=== PATIENT | female | born 1960 ===

== ENCOUNTER 2023-03-24 08:23 | Inpatient (IN) | payer OTHER ==
[~2023-03-24] VITALS: Ht 160 cm; Wt 57.2 kg
[2023-03-24] MEDS ORDERED: ZETIA10 MG PO (08:54)
[2023-03-24] MEDS ORDERED: CRESTOR10 MG PO (08:54)
[2023-03-24] MEDS ORDERED: TOPROL XL50 M1 PO (08:55)
[2023-03-24] MEDS ORDERED: TRAZODONE HCL150 MG PO (08:55)
[2023-03-24 09:40] LABS: URINE APPEARANCE Clear; URINE BILIRRUBIN Negative (NEGATIVE); URINE BLOOD Negative; URINE COLOR Yellow; URINE GLUCOSE Negative (NEGATIVE); URINE LEUKOCYTE Moderate; URINE NITRATE Negative; URINE PROTEIN Negative (NEGATIVE); URINE UROBILINOGEN 0.2 E.U./dl
[2023-03-24 09:45] LABS: URINE BACTERIA 163.7 uL (0.0-1933); URINE EPITHELIAL CELLS 9.1 uL (0.0-38.8); URINE RBC 5.1 uL (0.0-20.8); URINE WBC 4.7 uL (0.0-23.2)
[2023-03-24 09:47] LABS: HEMATOCRIT 41.1 % (36.0-45.00); HEMOGLOBIN 13.4 g/dL (12.0-15.00); MEAN CELL VOLUME 86.2 fL (80.00-100.00); MEAN CORPUSCULAR HEMOGLOBIN 28.1 pg (27.00-32.0); MEAN CORPUSCULAR HGB CONC 32.6 g/dl (32.0-36.0); PLATELET COUNT 198 K/uL (150-450); RED BLOOD COUNT 4.77 M/uL (4.00-6.00); RED CELL DISTRIBUTION WIDTH 13.5 % (11.5-14.5)
[2023-03-24 10:18] LABS: INR 1.01; PARTIAL THROMBOPLASTIN TIME 27.7 SECONDS (22.0-34.0); PROTHROMBIN TIME 10.6 SECONDS (9.0-11.5)
[2023-03-24 10:25] LABS: BILIRUBIN TOTAL 0.83 mg/dL (0.3-1.2); CREATININE SERUM 0.8 mg/dL (0.55-1.02); GFR 72.44; GLOBULINA 3.3 G/DL (2.4-3.5); POTASSIUM 4.25 mEq/L (3.5-5.1); TOTAL PROTEIN 7.3 gm/dL (6.4-8.2); TSH 0.929 uIU/mL (0.358-3.74)
[2023-03-31] MEDS ORDERED: LORATADINE10 MG (13:58)
[2023-03-31 17:50] LABS: HEMATOCRIT 39.4 % (36.0-45.00); HEMOGLOBIN 12.8 g/dL (12.0-15.00); MEAN CELL VOLUME 85.5 fL (80.00-100.00); MEAN CORPUSCULAR HEMOGLOBIN 27.7 pg (27.00-32.0); MEAN CORPUSCULAR HGB CONC 32.4 g/dl (32.0-36.0); PLATELET COUNT 181 K/uL (150-450); RED BLOOD COUNT 4.61 M/uL (4.00-6.00); RED CELL DISTRIBUTION WIDTH 13.4 % (11.5-14.5)
[2023-04-01] MEDS ORDERED: NAPR500T14 PO (09:12)
[2023-04-01] MEDS ORDERED: [UNRECOGNIZED DRUG - OTHER] PO (09:12)
== END 2023-04-01 12:24 | disposition home or self-care (01) | DRG 743 ==
LOC: O/R 03-31 09:09 → OB/GYN 03-31 10:15
PROVIDERS: ADMIT Obstetrics & Gynecology; ATTEND Obstetrics & Gynecology
PROC: 0UT7FZZ Resection of Bilateral Fallopian Tubes, Via Natural or Artificial Opening With Percutaneous Endoscopic Assistance (ICD-10-PCS; 2023-03-31)
PROC: 0UT2FZZ Resection of Bilateral Ovaries, Via Natural or Artificial Opening With Percutaneous Endoscopic Assistance (ICD-10-PCS; 2023-03-31)
PROC: 0JQC0ZZ Repair Pelvic Region Subcutaneous Tissue and Fascia, Open Approach (ICD-10-PCS; 2023-03-31)
PROC: 0USG0ZZ Reposition Vagina, Open Approach (ICD-10-PCS; 2023-03-31)
PROC: 0TJB8ZZ Inspection of Bladder, Via Natural or Artificial Opening Endoscopic (ICD-10-PCS; 2023-03-31)
PROC: 0UT9FZZ Resection of Uterus, Via Natural or Artificial Opening With Percutaneous Endoscopic Assistance (ICD-10-PCS; principal; 2023-03-31 15:00)
DX: D25.1 Intramural leiomyoma of uterus (principal); N81.11 Cystocele, midline; N72 Inflammatory disease of cervix uteri; N83.312 Acquired atrophy of left ovary; N80.03 Adenomyosis of the uterus; Z20.822 Contact with and (suspected) exposure to COVID-19

== ENCOUNTER 2023-04-02 12:39 | Inpatient (IN) | payer OTHER ==
[~2023-04-02] VITALS: Ht 152.4 cm; Wt 567.0 kg
[~2023-04-02 12:39] MED LIST: CRESTOR10 MG PO; LORATADINE10 MG; NAPR500T14 PO; TOPROL XL50 M1 PO; TRAZODONE HCL150 MG PO; ZETIA10 MG PO; [UNRECOGNIZED DRUG - OTHER] PO
[2023-04-02 13:54] LABS: HEMATOCRIT 43.5 % (36.0-45.00); HEMOGLOBIN 14.2 g/dL (12.0-15.00); MEAN CELL VOLUME 86.2 fL (80.00-100.00); MEAN CORPUSCULAR HEMOGLOBIN 28.2 pg (27.00-32.0); MEAN CORPUSCULAR HGB CONC 32.7 g/dl (32.0-36.0); PLATELET COUNT 188 K/uL (150-450); RED BLOOD COUNT 5.05 M/uL (4.00-6.00); RED CELL DISTRIBUTION WIDTH 13.5 % (11.5-14.5)
[2023-04-02 14:18] LABS: CALCIUM 8.5 mg/dL (8.5-10.1); CREATININE SERUM 0.76 mg/dL (0.55-1.02); GFR 76.86; POTASSIUM 3.57 mEq/L (3.5-5.1)
[2023-04-05 15:33] LABS: HEMATOCRIT 38.7 % (36.0-45.00); HEMOGLOBIN 12.6 g/dL (12.0-15.00); MEAN CELL VOLUME 85.3 fL (80.00-100.00); MEAN CORPUSCULAR HEMOGLOBIN 27.7 pg (27.00-32.0); MEAN CORPUSCULAR HGB CONC 32.5 g/dl (32.0-36.0); PLATELET COUNT 216 K/uL (150-450); RED BLOOD COUNT 4.53 M/uL (4.00-6.00); RED CELL DISTRIBUTION WIDTH 13.6 % (11.5-14.5)
[2023-04-05 15:51] LABS: ALBUMIN 1.8 gm/dL (3.4-5.0); BILIRUBIN TOTAL 0.62 mg/dL (0.3-1.2); CALCIUM 8.4 mg/dL (8.5-10.1); CREATININE SERUM 1.33 mg/dL (0.55-1.02); GFR 40.29; GLOBULINA 2.7 G/DL (2.4-3.5); POTASSIUM 4.34 mEq/L (3.5-5.1); TOTAL PROTEIN 4.5 gm/dL (6.4-8.2)
[2023-04-06 23:41] LABS: ALBUMIN 1.4 gm/dL (3.4-5.0); CREATININE SERUM 0.63 mg/dL (0.55-1.02); GFR 95.44; MAGNESIUM 1.6 mg/dL (1.8-2.4); PHOSPHOROUS 2.2 mg/dL (2.5-4.9); POTASSIUM 4.1 mEq/L (3.5-5.1)
[2023-04-06 23:51] LABS: HEMATOCRIT 41.9 % (36.0-45.00); HEMOGLOBIN 13.7 g/dL (12.0-15.00); MEAN CORPUSCULAR HEMOGLOBIN 27.5 pg (27.00-32.0); MEAN CORPUSCULAR HGB CONC 32.8 g/dl (32.0-36.0); PLATELET COUNT 227 K/uL (150-450); RED BLOOD COUNT 4.99 M/uL (4.00-6.00); RED CELL DISTRIBUTION WIDTH 13.9 % (11.5-14.5)
[2023-04-07 07:44] LABS: HEMOGLOBIN 13.7 g/dL (12.0-15.00); MEAN CELL VOLUME 83.9 fL (80.00-100.00); MEAN CORPUSCULAR HEMOGLOBIN 27.9 pg (27.00-32.0); MEAN CORPUSCULAR HGB CONC 33.3 g/dl (32.0-36.0); PLATELET COUNT 193 K/uL (150-450); RED BLOOD COUNT 4.89 M/uL (4.00-6.00); RED CELL DISTRIBUTION WIDTH 14.3 % (11.5-14.5)
[2023-04-07 08:04] LABS: URINE APPEARANCE Clear; URINE BILIRRUBIN Negative (NEGATIVE); URINE BLOOD Large; URINE COLOR Dark Yellow; URINE GLUCOSE Negative (NEGATIVE); URINE LEUKOCYTE Negative; URINE NITRATE Negative; URINE UROBILINOGEN 0.2 E.U./dl
[2023-04-07 08:06] LABS: URINE BACTERIA 11.3 uL (0.0-1933); URINE EPITHELIAL CELLS 14.5 uL (0.0-38.8); URINE RBC 331.9 uL (0.0-20.8); URINE WBC 18.5 uL (0.0-23.2)
[2023-04-07 08:22] LABS: ALBUMIN 1.2 gm/dL (3.4-5.0); CALCIUM 7.6 mg/dL (8.5-10.1); CREATININE SERUM 0.56 mg/dL (0.55-1.02); GFR 109.34; PHOSPHOROUS 2.3 mg/dL (2.5-4.9); POTASSIUM 3.92 mEq/L (3.5-5.1)
[2023-04-07 08:34] LABS: URINE PROTEIN 100 (NEGATIVE)
[2023-04-07 08:39] LABS: MAGNESIUM 1.4 mg/dL (1.8-2.4)
[2023-04-09 00:21] LABS: CALCIUM 7.1 mg/dL (8.5-10.1); CHOL HDL RATIO 7.6 (0-5.0); CREATININE SERUM 0.37 mg/dL (0.55-1.02); GFR 176.39; POTASSIUM 3.02 mEq/L (3.5-5.1)
[2023-04-11 06:40] LABS: HEMATOCRIT 33.8 % (36.0-45.00); MEAN CORPUSCULAR HEMOGLOBIN 27.8 pg (27.00-32.0); PLATELET COUNT 213 K/uL (150-450); RED BLOOD COUNT 3.52 M/uL (4.00-6.00)
[2023-04-11 06:49] LABS: INR 1.42; PARTIAL THROMBOPLASTIN TIME 33.7 SECONDS (22.0-34.0)
[2023-04-11 08:02] LABS: PROTHROMBIN TIME 14.5 SECONDS (9.0-11.5)
[2023-04-11 08:07] LABS: HEMOGLOBIN 9.8 g/dL (12.0-15.00)
[2023-04-11 12:41] LABS: CALCIUM 7.6 mg/dL (8.5-10.1); CHOL HDL RATIO 4.8 (0-5.0); CREATININE SERUM 0.58 mg/dL (0.55-1.02); POTASSIUM 3.33 mEq/L (3.5-5.1)
[2023-04-11 12:42] LABS: MAGNESIUM 1.4 mg/dL (1.8-2.4)
[2023-04-11 12:45] LABS: UREA CLEARANCE 38.4 ML/MIN
[2023-04-12 06:41] LABS: HEMATOCRIT 29.5 % (36.0-45.00); HEMOGLOBIN 9.8 g/dL (12.0-15.00); MEAN CORPUSCULAR HGB CONC 33.3 g/dl (32.0-36.0); PLATELET COUNT 268 K/uL (150-450); RED BLOOD COUNT 3.51 M/uL (4.00-6.00); RED CELL DISTRIBUTION WIDTH 13.8 % (11.5-14.5)
[2023-04-12 07:13] LABS: ALBUMIN 1.3 gm/dL (3.4-5.0); BILIRUBIN TOTAL 0.54 mg/dL (0.3-1.2); CALCIUM 7.2 mg/dL (8.5-10.1); CREATININE SERUM 0.43 mg/dL (0.55-1.02); GFR 148.3; GLOBULINA 2.8 G/DL (2.4-3.5); TOTAL PROTEIN 4.1 gm/dL (6.4-8.2)
[2023-04-12 07:26] LABS: POTASSIUM 2.57 mEq/L (3.5-5.1)
[2023-04-12 22:09] LABS: URINE APPEARANCE Clear; URINE BILIRRUBIN Negative (NEGATIVE); URINE BLOOD Small; URINE COLOR Yellow; URINE GLUCOSE Negative (NEGATIVE); URINE LEUKOCYTE Negative; URINE NITRATE Negative; URINE PROTEIN Negative (NEGATIVE)
[2023-04-12 22:10] LABS: URINE BACTERIA 32.7 uL (0.0-1933); URINE EPITHELIAL CELLS 6.7 uL (0.0-38.8); URINE RBC 54.3 uL (0.0-20.8); URINE WBC 7.5 uL (0.0-23.2)
[2023-04-12 22:12] LABS: ob NEGATIVE (NEGATIVE)
[2023-04-13 06:47] LABS: HEMATOCRIT 27.2 % (36.0-45.00); MEAN CELL VOLUME 83.8 fL (80.00-100.00); MEAN CORPUSCULAR HEMOGLOBIN 27.9 pg (27.00-32.0); MEAN CORPUSCULAR HGB CONC 33.3 g/dl (32.0-36.0); PLATELET COUNT 355 K/uL (150-450); RED BLOOD COUNT 3.25 M/uL (4.00-6.00); RED CELL DISTRIBUTION WIDTH 14.4 % (11.5-14.5)
[2023-04-13 07:19] LABS: ALBUMIN 1.3 gm/dL (3.4-5.0); CALCIUM 7.7 mg/dL (8.5-10.1); CREATININE SERUM 0.46 mg/dL (0.55-1.02); GFR 137.2; MAGNESIUM 1.5 mg/dL (1.8-2.4); PHOSPHOROUS 2.6 mg/dL (2.5-4.9); POTASSIUM 3.4 mEq/L (3.5-5.1)
[2023-04-13 07:25] LABS: C-REACTIVE PROTEIN 6.96 MG/DL (0.00-0.29)
[2023-04-16 07:37] LABS: ALBUMIN 1.5 gm/dL (3.4-5.0); BILIRUBIN TOTAL 0.24 mg/dL (0.3-1.2); CALCIUM 7.5 mg/dL (8.5-10.1); CREATININE SERUM 0.52 mg/dL (0.55-1.02); GFR 119.1; GLOBULINA 3.3 G/DL (2.4-3.5); MAGNESIUM 1.7 mg/dL (1.8-2.4); PHOSPHOROUS 2.4 mg/dL (2.5-4.9); POTASSIUM 4.23 mEq/L (3.5-5.1); TOTAL PROTEIN 4.8 gm/dL (6.4-8.2)
[2023-04-16 07:48] LABS: HEMATOCRIT 26.5 % (36.0-45.00); MEAN CELL VOLUME 83.7 fL (80.00-100.00); MEAN CORPUSCULAR HEMOGLOBIN 28.1 pg (27.00-32.0); MEAN CORPUSCULAR HGB CONC 33.6 g/dl (32.0-36.0); PLATELET COUNT 610 K/uL (150-450); RED BLOOD COUNT 3.16 M/uL (4.00-6.00); RED CELL DISTRIBUTION WIDTH 14.4 % (11.5-14.5)
[2023-04-16 08:05] LABS: HEMOGLOBIN 8.9 g/dL (12.0-15.00)
[2023-04-16 08:38] LABS: C-REACTIVE PROTEIN 5.97 MG/DL (0.00-0.29)
[2023-04-18 07:03] LABS: HEMATOCRIT 27.4 % (36.0-45.00); HEMOGLOBIN 9.2 g/dL (12.0-15.00); MEAN CELL VOLUME 83.9 fL (80.00-100.00); MEAN CORPUSCULAR HEMOGLOBIN 28.1 pg (27.00-32.0); MEAN CORPUSCULAR HGB CONC 33.5 g/dl (32.0-36.0); PLATELET COUNT 661 K/uL (150-450); RED BLOOD COUNT 3.27 M/uL (4.00-6.00); RED CELL DISTRIBUTION WIDTH 14.5 % (11.5-14.5)
[2023-04-18 07:25] LABS: CALCIUM 8.1 mg/dL (8.5-10.1); CREATININE SERUM 0.62 mg/dL (0.55-1.02); GFR 97.22; POTASSIUM 4.81 mEq/L (3.5-5.1)
[2023-04-20 06:59] LABS: HEMATOCRIT 26.3 % (36.0-45.00); MEAN CELL VOLUME 84.2 fL (80.00-100.00); MEAN CORPUSCULAR HGB CONC 32.9 g/dl (32.0-36.0); PLATELET COUNT 576 K/uL (150-450); RED BLOOD COUNT 3.12 M/uL (4.00-6.00)
[2023-04-20 07:01] LABS: HEMOGLOBIN 8.7 g/dL (12.0-15.00); MEAN CORPUSCULAR HEMOGLOBIN 27.8 pg (27.00-32.0)
[2023-04-20 07:05] LABS: ALBUMIN 1.8 gm/dL (3.4-5.0); BILIRUBIN TOTAL 0.32 mg/dL (0.3-1.2); CALCIUM 8.1 mg/dL (8.5-10.1); CREATININE SERUM 0.77 mg/dL (0.55-1.02); GFR 75.71; GLOBULINA 3.7 G/DL (2.4-3.5); MAGNESIUM 1.8 mg/dL (1.8-2.4); PHOSPHOROUS 3.3 mg/dL (2.5-4.9); POTASSIUM 4.71 mEq/L (3.5-5.1); TOTAL PROTEIN 5.5 gm/dL (6.4-8.2)
[2023-04-20 07:31] LABS: C-REACTIVE PROTEIN 3.02 MG/DL (0.00-0.29)
[2023-04-21 09:31] LABS: HEMATOCRIT 26.6 % (36.0-45.00); HEMOGLOBIN 9.1 g/dL (12.0-15.00); MEAN CELL VOLUME 86.2 fL (80.00-100.00); MEAN CORPUSCULAR HEMOGLOBIN 29.6 pg (27.00-32.0); MEAN CORPUSCULAR HGB CONC 34.4 g/dl (32.0-36.0); PLATELET COUNT 411 K/uL (150-450); RED BLOOD COUNT 3.08 M/uL (4.00-6.00); RED CELL DISTRIBUTION WIDTH 14.9 % (11.5-14.5)
[2023-04-23 07:48] LABS: HEMATOCRIT 31.3 % (36.0-45.00); HEMOGLOBIN 10.4 g/dL (12.0-15.00); MEAN CELL VOLUME 85.7 fL (80.00-100.00); MEAN CORPUSCULAR HEMOGLOBIN 28.5 pg (27.00-32.0); MEAN CORPUSCULAR HGB CONC 33.2 g/dl (32.0-36.0); PLATELET COUNT 440 K/uL (150-450); RED BLOOD COUNT 3.65 M/uL (4.00-6.00); RED CELL DISTRIBUTION WIDTH 15.7 % (11.5-14.5)
[2023-04-23 08:39] LABS: CALCIUM 8.2 mg/dL (8.5-10.1); CREATININE SERUM 0.76 mg/dL (0.55-1.02); GFR 76.86; POTASSIUM 4.91 mEq/L (3.5-5.1)
[2023-04-27] MEDS ORDERED: AMOX1TAB5 PO (08:59)
[2023-04-27] MEDS ORDERED: NAPR500T14 PO (08:59)
[2023-04-27] MEDS ORDERED: AMIODARONE HCL200 MG PO (08:59)
[2023-04-27] MEDS ORDERED: FLAGYL375 MG PO (08:59)
== END 2023-04-27 10:09 | disposition home or self-care (01) | DRG 329 ==
LOC: ER 12:39 → OB/GYN 18:45 → ICU 04-06 22:48 → SURH 04-17 14:03
PROVIDERS: Emergency Medicine; Internal Medicine; Internal Medicine Infectious Disease; Obstetrics & Gynecology; Surgery; ADMIT Obstetrics & Gynecology; ATTEND Obstetrics & Gynecology
PROC: BW4GZZZ Ultrasonography of Pelvic Region (ICD-10-PCS; 2023-04-02)
PROC: 0DQE0ZZ Repair Large Intestine, Open Approach (ICD-10-PCS; 2023-04-06)
PROC: BW21ZZZ Computerized Tomography (CT Scan) of Abdomen and Pelvis (ICD-10-PCS; 2023-04-06)
PROC: 0DQ80ZZ Repair Small Intestine, Open Approach (ICD-10-PCS; principal; 2023-04-06 15:45)
PROC: B246ZZZ Ultrasonography of Right and Left Heart (ICD-10-PCS; 2023-04-07)
PROC: 02H633Z Insertion of Infusion Device into Right Atrium, Percutaneous Approach (ICD-10-PCS; 2023-04-11)
PROC: B246ZZZ Ultrasonography of Right and Left Heart (ICD-10-PCS; 2023-04-11)
PROC: 3E1M38Z Irrigation of Peritoneal Cavity using Irrigating Substance, Percutaneous Approach (ICD-10-PCS; 2023-04-12)
PROC: BW21YZZ Computerized Tomography (CT Scan) of Abdomen and Pelvis using Other Contrast (ICD-10-PCS; 2023-04-14)
PROC: BB24YZZ Computerized Tomography (CT Scan) of Bilateral Lungs using Other Contrast (ICD-10-PCS; 2023-04-14)
PROC: 30233N1 Transfusion of Nonautologous Red Blood Cells into Peripheral Vein, Percutaneous Approach (ICD-10-PCS; 2023-04-20)
DX: K63.1 Perforation of intestine (nontraumatic) (principal); K65.8 Other peritonitis; K91.72 Accidental puncture and laceration of a digestive system organ or structure during other procedure; I48.92 Unspecified atrial flutter; G89.18 Other acute postprocedural pain; Z20.822 Contact with and (suspected) exposure to COVID-19; R50.82 Postprocedural fever; Z90.710 Acquired absence of both cervix and uterus; D25.1 Intramural leiomyoma of uterus; N81.11 Cystocele, midline; B96.1 Klebsiella pneumoniae [K. pneumoniae] as the cause of diseases classified elsewhere; B95.2 Enterococcus as the cause of diseases classified elsewhere; B96.89 Other specified bacterial agents as the cause of diseases classified elsewhere